=== PATIENT | female | born 1980 | race Caucasian/White ===

== ENCOUNTER 2023-02-23 07:44 | Emergency (ER) | payer OTHER, BC, SELFPAY ==
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
[2023-02-23 07:43] VITALS: BP 149/85; PULSE 94; RESP 20; TEMP 36.4; O2SAT 100
[2023-02-23 08:15] VITALS: BP 134/73; PULSE 92; RESP 22; O2SAT 100
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
[2023-02-23] MEDS: CYCLOBENZAPRINE HCL 10 MG TABLET PO (08:18)
[2023-02-23] MEDS: HYDROcodone/acetaminophen (*CRX) 5-325 MG TABLET 1 TAB PO (08:19)
[2023-02-23 08:44] VITALS: BP 144/83; PULSE 87; RESP 27; O2SAT 98
[2023-02-23 09:00] VITALS: BP 149/87; PULSE 88; RESP 23; O2SAT 100
[2023-02-23 09:15] VITALS: BP 137/93; PULSE 92; RESP 20; O2SAT 96
[2023-02-23 10:31] VITALS: BP 130/86; PULSE 89; RESP 18; O2SAT 99
== END 2023-02-23 10:32 | disposition home or self-care (01) ==
PROVIDERS: Emergency Provider Emergency Medicine
DX: S09.90XA Unspecified injury of head, initial encounter (principal); S39.92XA Unspecified injury of lower back, initial encounter; Z90.49 Acquired absence of other specified parts of digestive tract; V49.40XA Driver injured in collision with unspecified motor vehicles in traffic accident, initial encounter; M47.812 Spondylosis without myelopathy or radiculopathy, cervical region; M47.816 Spondylosis without myelopathy or radiculopathy, lumbar region; M47.814 Spondylosis without myelopathy or radiculopathy, thoracic region
CPT/HCPCS: 70450; 72125; 72128; 72131; 99284; A9270; L0140